=== PATIENT | female | born 1975 | race Caucasian/White ===

== ENCOUNTER 2016-09-24 07:00 | Inpatient (IN) | payer OTHER ==
--- NOTE | ~2016-09-24 | CO ---
Unit #: [id number] #: [id number] Patient: KASSANDRA KOLB [id number] [place] [address] [id number] I MR#: [id number] NAME: KASSANDRA KOLB ROOM: [facility] Age: 41 Sex: F Admission Date: 09/24/2016 : 1975 Attending Physician: Naren Kang M.D. Primary Care Physician: Generic Doctor Not In System Consultation Date: 09/24/2016 CONSULTATION REPORT SUBJECTIVE Kassandra is a 41-year-old with history of COPD. We have been asked to review her medications. She has no complaints of increased cough or shortness of breath. On admission, she was admitted on no inhalers. We will start Proventil inhaler 2 puffs q.4 hours p.r.n. shortness of breath and continue her Dulera 200 mcg b.i.d. Dictated by... Sheila Dillon PSarahASarah-Ryan. for Koby Mares/danita TD: 10/03/2016 02:59 JOB #: [id number] CONSULTATION REPORT Page 1 of 1 X Sheila Dillon CONSULTATION REPORT
--- NOTE | ~2016-09-24 | DS ---
Unit #: [id number] #: [id number] Patient: KASSANDRA KOLB [id number] [place] [address] [id number] I MR#: [id number] NAME: KASSANDRA KOLB ROOM: [facility] Age: 41 Sex: F Admission Date: 09/24/2016 : 1975 Discharge Date: 09/28/2016 Attending Physician: Naren Kang M.D. Primary Care Physician: Generic Doctor Not In System DISCHARGE SUMMARY REASON FOR ADMISSION Kassandra is a 41-year-old woman with a history of bipolar disorder and amphetamine abuse, who presented to [facility] emergency room in an agitated state. Her toxicology screen was positive for amphetamines and cannabis and she states she had been off her psychiatric medications. She was admitted for stabilization. LABORATORY DATA Please see hospital chart. HOSPITAL COURSE The patient was readmitted and placed on Symbyax, buspirone, Neurontin, and trazodone. Her home medications were also restarted. She was quite agitated during the early part of the hospitalization, expressed a great deal of anxiety and mood lability, frequently asking for "nerve medicines" or increasing doses of her current medications. Eventually her mood calmed; although, she still continued to apparently crave stimulants; had limited insight into her chemical dependence issue. On the date of discharge, she was able to contract for safety. DISCHARGE DIAGNOSES [place] I: Bipolar disorder, mixed amphetamine dependence. [place] II: Diagnosis deferred. [place] III: History of asthma, history of back pain, and hypothyroidism. BODY AFTER AXIS DISCHARGE INSTRUCTIONS The patient to follow up with community [facility] and primary care physician. DISCHARGE MEDICATIONS Symbyax 6/25 two capsules daily for bipolar disorder, BuSpar 10 mg t.i.d. for anxiety, Vistaril every 6 hours as needed for anxiety, trazodone 50 mg at bedtime as needed for insomnia, Neurontin 800 mg t.i.d. for anxiety. Other medications per primary care physician. CONDITION AT DISCHARGE Improved. PROGNOSIS Unit #: [id number] #: [id number] Patient: KASSANDRA KOLB Fair. DIET Ad-marlen. ACTIVITY Ad-marlen. Dictated by... Naren Kang M.D. [facility]/danita TD: 10/12/2016 14:26 JOB #: [id number] DISCHARGE SUMMARY Page 1 of 1 X Naren Kang MD DISCHARGE SUMMARY
--- NOTE | ~2016-09-24 | HP ---
Unit #: [id number] #: [id number] Patient: [facility]ASSANDR[facility] KOLB [id number] [facility] [address] [place] [address] [id number] I MR#: [id number] NAME: KASSANDRA KOLB ROOM: P171 Age: 41 Sex: F Admission Date: 09/24/2016 : 1975 Attending Physician: Naren Kang M.D. Admitting Physician: Naren Kang M.D. Primary Care Physician: Generic Doctor Not In System HISTORY AND PHYSICAL HISTORY OF PRESENT ILLNESS Kassandra is a 41 year old admitted to [facility] because of her drug use. She has had other admissions to this facility for the same. PAST MEDICAL HISTORY 1. Long history of illicit substance abuse to include methamphetamine. 2. Degenerative disc disease. 3. Asthma. 4. GERD. PAST SURGICAL HISTORY Nothing reported ALLERGIES Macrobid SOCIAL HISTORY Smokes one pack per day. Drinks alcohol on occasion, admits to a long history of illicit substance abuse to include marijuana, cocaine and methamphetamine. FAMILY HISTORY Medically noncontributory. REVIEW OF SYSTEMS CONSTITUTIONAL: No fever or chills. HEENT: Denies any sore throat, ear pain or runny nose. CARDIOVASCULAR: Denies chest pain, irregular heart rhythm or palpitations. CHEST: Denies shortness of breath or cough. No hemoptysis. GASTROINTESTINAL: Denies nausea, vomiting, diarrhea or chronic constipation. ENDOCRINE: Denies history of increased thirst or urination. No recent significant weight loss or gain. GENITOURINARY: Denies dysuria, frequency, or hematuria. SKIN: Denies any rashes. HEMATOLOGIC: Denies history of increased bleeding or bruising. MUSCULOSKELETAL: Denies any hot, swollen joints. No generalized muscle pain. NEUROLOGIC: Denies problems with vision or speech. No frequent, severe headaches. No numbness, tingling or weakness in any extremities. Denies loss of bladder or bowel control. Unit #: [id number] #: [id number] Patient: KASSANDRA KOLB CURRENT MEDICATIONS 1. BuSpar 10 mg b.i.d. 2. Symbyax 6/625 2 caps q h.s. 3. Neurontin 400 mg t.i.d. 4. Flexeril 10 mg t.i.d. 5. Desyrel p.r.n. 6. Milk of Magnesia p.r.n. 7. Maalox p.r.n. 8. Tylenol p.r.n. 9. Viibryd 20 mg q day 10. Protonix 40 mg q day PHYSICAL EXAMINATION GENERAL: Alert, well-nourished, in no apparent distress. VITAL SIGNS: Blood pressure 110/70, heart rate 82, respirations 16, temperature 98.6. WEIGHT: 144 pounds. HEIGHT: 5'3". SKIN: Warm and dry without rash or lesion. HEENT: Normocephalic. TMs not viewed. Oral and nasal passages clear. Conjunctivae clear. Pupils equal, round and reactive to light and accommodation. Extraocular movements intact. NECK: Supple without lymphadenopathy or thyromegaly. HEART: Regular rate and rhythm without murmur. LUNGS: Clear. ABDOMEN: Soft, nontender. : Not done. EXTREMITIES: No evidence of cyanosis, clubbing or edema. Moves all extremities without focal deficit. NEUROLOGICAL: Grossly within normal limits. Cranial Nerves: II: Visual boothe are intact. III, IV AND : Extraocular movements are intact. Pupils are equal, round and reactive to light. V: Facial sensation is grossly normal. VII: Facial movements and expression are normal. VIII: Auditory acuity grossly intact. IX, X: Uvula is midline. Phonation is normal. XI: Patient shrugs shoulders and turns head normally. XII: Tongue protrudes in the midline. Sensory and Motor Function: Sensory and motor sensation is grossly normal. Motor: moves all extremities well. Coordination: Gait is normal. Deep Tendon Reflexes: Intact. IMPRESSION Psychiatric admission RECOMMENDATIONS PSYCHIATRIC: Per psychiatrist. MEDICAL: I see no contraindications to participating in facility's activities. MEDICAL PROGNOSIS Good. MEDICAL CONDITION Stable. Unit #: [id number] #: [id number] Patient: KASSANDRA KOLB Dictated by... Sheila Dillon P.A.-C. for Koby Mares/enrique TD: 09/24/2016 21:25 JOB #: [id number] HISTORY AND PHYSICAL Page 1 of 1 X Sheila Dillon X HISTORY AND PHYSICAL
--- NOTE | ~2016-09-24 | CO ---
Unit #: [id number] #: [id number] Patient: KIRAN KOLB [id number] [place] [address] [id number] MR#: [id number] NAME: KIRAN KOLB ROOM: [facility] Age: 41 Sex: F Admission Date: 09/24/2016 : 1975 Attending Physician: Naren Kang M.D. Primary Care Physician: Generic Doctor Not In System Consultation Date: 09/25/2016 CONSULTATION REPORT RITA Holly is a 41-year-old with history of asthma. She has requested an escape inhaler. Order was written for albuterol 2 puffs q.4 hours p.r.n. Dictated by... Sheila Dillon PSarahA.-Ryan. for Koby Mares/danita TD: 10/11/2016 02:16 JOB #: [id number] CONSULTATION REPORT Page 1 of 1 X Sheila Dillon CONSULTATION REPORT
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
== END 2016-09-28 12:35 | disposition home or self-care (01) | DRG 897 ==
LOC: P1E 13:51
DX: F15.10 Other stimulant abuse, uncomplicated (principal); F14.10 Cocaine abuse, uncomplicated; J45.909 Unspecified asthma, uncomplicated; K21.9 Gastro-esophageal reflux disease without esophagitis; F17.210 Nicotine dependence, cigarettes, uncomplicated; F12.10 Cannabis abuse, uncomplicated; J44.9 Chronic obstructive pulmonary disease, unspecified; E03.9 Hypothyroidism, unspecified; F41.9 Anxiety disorder, unspecified
CPT/HCPCS: 84443